=== PATIENT | male | born 1980 | race African-American/Black ===

== ENCOUNTER 2018-05-05 10:54 | Outpatient (CLI) | payer BC ==
[~2018-05-05 10:54] MED LIST: ACET-689 PO; ACET7.5T70 PO; ALBUTEROL2 MG/5 ML PO; AMOX875T8 PO; CYCL10TA35 PO; GABA100C2 PO; LORA10TA3 PO; MEDROL DOSEPAK4 MG PO
== END 2018-05-05 20:32 | disposition home or self-care (01) ==
LOC: RAD 10:54
DX: R05 Cough (principal)

== ENCOUNTER 2018-05-10 16:07 | Emergency (ER) | payer OTHER ==
[~2018-05-10] VITALS: Ht 170.2 cm; Wt 106.1 kg
[2018-05-10 17:14] LABS: PLATELET COUNT 172 K/uL (142-355)
[2018-05-10 17:38] LABS: POTASSIUM 3.9 mmol/L (3.6-5.2)
[2018-05-10 18:45] VITALS: BP 125/73; TEMP 97.8
== END 2018-05-10 18:45 | disposition home or self-care (01) ==
LOC: ED 16:07
DX: T78.49XA Other allergy, initial encounter (principal); T65.831A Toxic effect of fiberglass, accidental (unintentional), initial encounter; Z57.5 Occupational exposure to toxic agents in other industries; Y92.69 Other specified industrial and construction area as the place of occurrence of the external cause
CPT/HCPCS: 36415; 80053; 80307; 81000; 85027; 96374; 96375; 99284; J1200; J2930

== ENCOUNTER 2018-05-30 23:05 | Inpatient (IN) | payer OTHER ==
[~2018-05-30] VITALS: Ht 167.6 cm; Wt 101.2 kg
[2018-05-30 23:10] VITALS: BP 116/68; TEMP 102.2
[2018-05-30 23:45] LABS: PLATELET COUNT 88 K/uL (142-355)
[2018-05-30 23:51] VITALS: BP 101/74; TEMP 99.7
[2018-05-30 23:55] LABS: POTASSIUM 3.6 mmol/L (3.6-5.2); SODIUM 127 mmol/L (136-145)
[2018-05-31] VITALS (9 sets, daily range): BP systolic 98–110; BP diastolic 54–67; TEMP 97.3–99.9; Ht 167.6 cm; Wt 101.2 kg
[2018-05-31 10:12] LABS: PLATELET COUNT 99 K/uL (142-355)
[2018-05-31 10:21] LABS: POTASSIUM 4.2 mmol/L (3.6-5.2)
[2018-06-01] VITALS (12 sets, daily range): BP systolic 95–118; BP diastolic 52–84; TEMP 98.9–101.9
[2018-06-01 08:54] LABS: PLATELET COUNT 98 K/uL (142-355)
[2018-06-01 09:09] LABS: POTASSIUM 3.4 mmol/L (3.6-5.2)
== END 2018-06-01 15:50 | disposition short-term general hospital (02) | DRG 194 ==
LOC: ED 23:05 → ICU 05-31 02:30 → MED/SURG 05-31 02:30 → ICU 06-01 08:30
PROVIDERS: Family Medicine; ADMIT Internal Medicine
DX: J18.8 Other pneumonia, unspecified organism (principal); E46 Unspecified protein-calorie malnutrition; R06.09 Other forms of dyspnea; T78.49XA Other allergy, initial encounter; X58.XXXA Exposure to other specified factors, initial encounter; R50.9 Fever, unspecified; R21 Rash and other nonspecific skin eruption; D64.89 Other specified anemias; D69.6 Thrombocytopenia, unspecified; R74.8 Abnormal levels of other serum enzymes; R73.9 Hyperglycemia, unspecified
CPT/HCPCS: 36415; 36600; 80053; 80074; 82550; 82553; 82805; 83036; 83735; 83880; 84100; 84484; 85027; 85379; 85651; 86039; 86430; 87040; 87070; 87205; 87502; 93005; 93306; 94640; 94664; 94668; 94760; 96361; 96365; 96368; 96375; 99285; J0456; J1885; J2060; J2270; J2543; J2930; J3490; Q9963

== ENCOUNTER 2018-06-01 15:51 | Outpatient (CLI) | payer OTHER | END 2018-06-01 17:10 | disposition short-term general hospital (02) | LOC: AMB 15:51 | DX: J18.8 Other pneumonia, unspecified organism (principal); E46 Unspecified protein-calorie malnutrition; R06.09 Other forms of dyspnea; T78.49XA Other allergy, initial encounter; X58.XXXA Exposure to other specified factors, initial encounter; R50.9 Fever, unspecified; R21 Rash and other nonspecific skin eruption; D64.89 Other specified anemias; D69.6 Thrombocytopenia, unspecified; R74.8 Abnormal levels of other serum enzymes; R73.9 Hyperglycemia, unspecified | CPT/HCPCS: A0425; A0427 ==